=== PATIENT | female | born 1945 | race Caucasian/White ===

== ENCOUNTER 2016-10-26 12:03 | Emergency (ER) | payer OTHER ==
[~2016-10-26] VITALS: Ht 162.6 cm; Wt 91.5 kg
[~2016-10-26 12:03] MED LIST: ZOLOFT
[2016-10-26 12:46] VITALS: Ht 162.6 cm; Wt 91.5 kg
[2016-10-26] MEDS ORDERED: KETOROLAC 30 MG INJ IM STA (15:47)
[2016-10-26] MEDS ORDERED: NAPR-260 PO (15:56)
[2016-10-26] MEDS ORDERED: ACET500C5 PO (15:56)
[2016-10-26 16:04] VITALS: BP 106/79; PULSE 78; RESP 18; TEMP 98.7
--- NOTE | 2016-10-26 16:04 | ERD ---
ER Documentation Chief Complaint Date/Time DATE: 10/26/16 TIME: 15:59 Chief Complaint GENERALIZED BODY PAIN,SEVERE ON THE KNEES HPI This is a 71-year-old female who presents to the emergency department today complaining of multiple areas of pain. Patient states he has pain in her upper shoulders and neck, low back and bilateral knees. States that she has had this pain for 4 years. States that she also takes medication for her thyroid as well as depression medications. States that she did get some blood work done 6 weeks ago from her primary care doctor but did not follow-up because when she called the told her that there was "nothing wrong". Denies any fevers or chills. Denies any trauma or fall. Denies any loss of bowel or bladder control. States she has not taken any medication for the pain. ROS All systems reviewed and are negative except as per history of present illness. Medications Home Meds Active Scripts Acetaminophen* (Tylophen*) 500 Mg Capsule, 1 CAP PO Q6H Y for PAIN AND OR ELEVATED TEMP, #30 CAP Prov:HAO NGUYEN PA-C 10/26/16 Naproxen* (Naprosyn*) 500 Mg Tablet, 500 MG PO BID Y for PAIN AND/OR INFLAMMATION, #30 TAB Prov:HAO NGUYEN PA-C 10/26/16 Reported Medications [Zoloft] No Conflict Check 09/15/10 Allergies Allergies: Coded Allergies: No Known Drug Allergies (Verified Allergy, Mild, 10/07/14) PMhx/Soc History of Surgery: No Anesthesia Reaction: No Hx Neurological Disorder: No Hx Respiratory Disorders: No Hx Cardiac Disorders: No Hx Psychiatric Problems: Yes (ZOLOFT) Hx Miscellaneous Medical Probl: No Hx Alcohol Use: No Hx Substance Use: No Hx Tobacco Use: Yes Smoking Status: Never smoker Physical Exam Vitals Vital Signs Date Time Temp Pulse Resp B/P Pulse Ox O2 Delivery O2 Flow Rate FiO2 10/26/16 12:46 98.4 82 18 118/84 98 Physical Exam Const: No acute distress Head: Atraumatic Eyes: Normal Conjunctiva ENT: Normal External Ears, Nose and Mouth. Neck: Full range of motion..~ No meningismus. No midline tenderness Resp: Clear to auscultation bilaterally Cardio: Regular rate and rhythm, no murmurs kin: No petechiae or rashes Back: No midline or flank tenderness. Bilateral paraspinal tenderness. MSK: Bilateral knees with no obvious deformity. No effusion. No ecchymosis. Full active range of motion. No erythema or warmth. Pulses 2+. Distal neurovascular intact Neur: Awake and alert Psych: Normal Mood and Affect Results 24 hrs Current Medications Medications (Trade) Dose Ordered Sig/Manuel Route PRN Reason Start Time Stop Time Status Last Admin Dose Admin Ketorolac Tromethamine (Toradol) 30 mg ONCE STAT IM 10/26/16 15:47 10/26/16 15:49 DC 10/26/16 15:52 Procedures/MDM This 71-year-old female who presents to the emergency department today complaining of multiple areas of pain that is been ongoing for the past 4 years. Patient denies any trauma and she has no loss of bowel or bladder control and I do not feel that she requires further evaluation or workup at this time. Patient did indicate that she did have blood work completed 6 months ago. I have explained to the patient that she does need to follow-up in regards to that blood work. Patient was also stating that she has used Fosamax in the past and that was helpful for her. I explained to the patient that this is not something that I was comfortable sending her home with at this time as she did need to be evaluated for osteoporosis or osteopenia and that she should follow-up with her primary care doctor about this. Patient is afebrile and otherwise well-appearing. Low suspicion for acute fracture, dislocation, cauda equina or abscess. Low suspicion for meningitis. Low suspicion for septic joint or gout. Patient was able to ambulate. She was given a Toradol injection. She did not take any medication at home for pain and therefore did give her a prescription for Naprosyn and Tylenol. 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 Patient should follow up with their PCP in the next 1-2 days. They may return to the emergency department sooner for any persistent or worsening of symptoms. Patient understood and agreed with the plan. Departure Diagnosis: Primary Impression: Pain Condition: Fair Patient Instructions: Reducing Knee Pain and Swelling, Back Pain (Acute Or Chronic) Referrals: your PCP Dr. Lopez [facility] Hours: Tue-Tue 9:00 AM - 5:00 PM Additional Instructions: Call your primary care doctor TOMORROW for an appointment during the next 1-2 days.See the doctor sooner or return here if your condition worsens before your appointment time. Take Naprosyn or Tylenol or Motrin if you have pain Follow-up with your primary care doctor for further evaluation HAO NGUYEN PA-C Oct 26, 2016 16:04
== END 2016-10-26 16:06 | disposition home or self-care (01) ==
LOC: FTE 12:03
DX: M25.561 Pain in right knee (principal); M25.562 Pain in left knee; M25.519 Pain in unspecified shoulder; M54.2 Cervicalgia; M54.5 Low back pain; Z87.891 Personal history of nicotine dependence
CPT/HCPCS: 96372; 99284; J1885

== ENCOUNTER 2017-04-30 13:16 | Emergency (ER) | payer OTHER ==
[~2017-04-30] VITALS: Ht 160 cm; Wt 75.0 kg
[~2017-04-30 13:16] MED LIST changes: +ACET500C5 PO; +NAPR-260 PO
[2017-04-30 13:37] VITALS: Ht 160 cm; Wt 75.0 kg
--- NOTE | 2017-04-30 15:59 | RADRPT ---
PROCEDURE: XR Chest. CLINICAL INDICATION: Cough for 2 months. TECHNIQUE: Single frontal view. COMPARISON: None. FINDINGS: The lungs are clear. The heart is mildly enlarged. There is calcification in the aorta consistent with atherosclerosis. There is no pleural effusion. There is no pneumothorax. IMPRESSION: 1. Mild cardiomegaly. 2. Atherosclerosis. 3. Otherwise normal chest x-ray. RPTAT: QQ .Pro Davis MD, MD Date Time Electronically viewed and signed by .Pro Davis MD, on 04/30/2017 15:59 .R/
[2017-04-30] MEDS ORDERED: BENZ200C43 PO (16:08)
[2017-04-30 16:14] VITALS: BP 164/77; PULSE 91; RESP 16; TEMP 98.1
--- NOTE | 2017-04-30 16:35 | ERD ---
ER Documentation Chief Complaint Chief Complaint pt bib self with c/o cough for a month, no fever at triage. HPI This patient is a 72-year-old female presenting to the emergency department with complaints of cough intermittently for the past 2 months. Symptoms are worsening. Cough was initially dry then became productive. Associated symptoms include fevers and sneezing. She denies chest pain, shortness of breath, or other symptoms currently. ROS All systems reviewed and are negative except as per history of present illness. Medications Home Meds Active Scripts Benzonatate* (Benzonatate*) 200 Mg Capsule, 200 MG PO TID Y for COUGH, #20 CAP Prov:ART ANDERS PA-C 04/30/17 Acetaminophen* (Tylophen*) 500 Mg Capsule, 1 CAP PO Q6H Y for PAIN AND OR ELEVATED TEMP, #30 CAP Prov:HAO NGUYEN PA-C 10/26/16 Naproxen* (Naprosyn*) 500 Mg Tablet, 500 MG PO BID Y for PAIN AND/OR INFLAMMATION, #30 TAB Prov:HAO NGUYEN PA-C 10/26/16 Reported Medications [Zoloft] No Conflict Check 09/15/10 Allergies Allergies: Coded Allergies: No Known Drug Allergies (Verified Allergy, Mild, 10/07/14) PMhx/Soc History of Surgery: No Anesthesia Reaction: No Hx Neurological Disorder: No Hx Respiratory Disorders: No Hx Cardiac Disorders: No Hx Psychiatric Problems: Yes (ZOLOFT) Hx Miscellaneous Medical Probl: No Hx Alcohol Use: No Hx Substance Use: No Hx Tobacco Use: Yes Smoking Status: Current every day smoker Physical Exam Vitals Vital Signs Date Time Temp Pulse Resp B/P Pulse Ox O2 Delivery O2 Flow Rate FiO2 04/30/17 16:14 98.1 91 16 164/77 96 Room Air 04/30/17 13:37 98.1 86 16 169/71 96 Physical Exam Const: Nontoxic, well-appearing female in no acute distress. Head: Atraumatic Eyes: Normal Conjunctiva ENT: Normal External Ears, Nose and Mouth. Neck: Full range of motion..~ No meningismus. Resp: Clear to auscultation bilaterally Cardio: Regular rate and rhythm, no murmurs Skin: No petechiae or rashes Ext: No cyanosis, or edema Neur: Awake and alert Psych: Normal Mood and Affect Procedures/MDM 72-year-old female presenting to the emergency department with complaints of cough. Physical examination is unremarkable. Chest x-ray was not concerning for pneumonia. Low suspicion for life-threatening illness including but not limited to aortic dissection, pneumothorax, pulmonary embolism, pneumonia, sepsis, and others. Patient is stable for outpatient management with a prescription for benzonatate. She is to follow-up with her primary care physician within 1-2 days. She is advised to return immediately for any new or worsening symptoms. PROCEDURE: XR Chest. CLINICAL INDICATION: Cough for 2 months. TECHNIQUE: Single frontal view. COMPARISON: None. FINDINGS: The lungs are clear. The heart is mildly enlarged. There is calcification in the aorta consistent with atherosclerosis. There is no pleural effusion. There is no pneumothorax. IMPRESSION: 1. Mild cardiomegaly. 2. Atherosclerosis. 3. Otherwise normal chest x-ray. RPTAT: QQ .Pro Davis MD, MD Date Time Electronically viewed and signed by .Pro Davis MD, on 04/30/2017 15:59 Departure Diagnosis: Primary Impression: Cough Condition: Fair Patient Instructions: Cough, Chronic, Uncertain Cause, (Adult) [facility]errals: [facility] Usted se davila hecho un examen mdico de control que le indica que no est en corona condicin que requiera tratamiento urgente en el Departamento de Emergencia. Un estudio ms profundo y el tratamiento de burgess condicin pueden esperar sin ningn riesgo hasta que usted sea atendida/o en el consultorio de burgess mdico o corona cl dominguez. Es responsabilidad suya arreglar corona emily para el seguimiento del abhijeet. MANEJO DE CONDICIONES NO URGENTES EN EL FUTURO 1) Si usted tiene un mdico de atencin primaria: Usted debera llamar a burgess mdico de atencin primaria antes de venir al departamento de emergencia. Despus de las horas de consultorio, burgess doctor o burgess asociado/a est disponible por telfono. El mdico o enfermero de iveth en el servicio telefnico puede asesorarle por nivia medio para atender el problema, o abhijeet contrario se puede programar corona emily. 2) Si usted no tiene un mdico de atencin primaria: Llame al mdico o clnica de referencia que aparece abajo merritt las horas de consultorio para hacer corona emily para que le vean. CLINICAS: [facility] [phone] [facility] [phone] [facility] [phone] [place] [phone] [place] [phone] [facility] [phone] Additional Instructions: No mas mejor en 2-3 dickson, regresar. Mas peor en 24 horas, regresear rapidamente. Ir a doctor primario en 1-2 dickson. Usar instrucciones cuando lashanda medicamento. ART ANDERS PA-C Apr 30, 2017 16:35
== END 2017-04-30 16:15 | disposition home or self-care (01) ==
LOC: FTE 13:16
DX: R05 Cough (principal); F17.210 Nicotine dependence, cigarettes, uncomplicated
CPT/HCPCS: 71010

== ENCOUNTER 2017-09-11 18:18 | Emergency (ER) | END 2017-09-11 21:08 | disposition home or self-care (01) ==

== ENCOUNTER 2018-05-05 15:16 | Emergency (ER) | END 2018-05-05 17:00 | disposition home or self-care (01) ==

== ENCOUNTER 2018-09-03 14:18 | Emergency (ER) | payer OTHER ==
[~2018-09-03] VITALS: Ht 162.6 cm; Wt 90.5 kg
[~2018-09-03 14:18] MED LIST changes: +BACL10TA PO; +BENZ200C68 PO; +HC30CR25 TOP; +LORA-441 PO; -NAPR-260 PO; +NAPR-985 PO; +PRED20TA PO
[2018-09-03 14:21] VITALS: Ht 162.6 cm; Wt 90.5 kg
[2018-09-03] MEDS ORDERED: HYDROmorphONE 1 MG/ML SYG IV STA (14:57)
[2018-09-03] MEDS ORDERED: ONDANSETRON 4 MG INJ IV STA (14:57)
--- NOTE | 2018-09-03 15:11 | ERD ---
ER Documentation Chief Complaint Chief Complaint abd pain x 2 weeks lowe back pain x 1 month bilat leg numbnessx 1 week HPI This is a 73-year-old female who is here for left-sided sciatica since she had a fall 3 weeks ago. She has occasional low back pain but complains of radicular pain down the left leg has to use a cane. She says she has pain in her left buttocks that radiates down the back of the left leg. She is also complaining of 2 days of right lower quadrant pain that is off and on no fever no nausea vomiting diarrhea no chest pain or shortness of breath. No dysuria or hematuria ROS All systems reviewed and are negative except as per history of present illness. Medications Home Meds Reported Medications Ergocalciferol (Vitamin D2) (VITAMIN D2) 2,000 Unit Tablet, 2000 UNIT PO DAILY, TAB 09/03/18 Sertraline Hcl* (Zoloft*) 25 Mg Tablet, 25 MG PO DAILY, #30 TAB 09/03/18 Discontinued Reported Medications [Zoloft] No Conflict Check 09/15/10 Discontinued Scripts Prednisone* (Prednisone*) 20 Mg Tab, 40 MG PO DAILY for 5 Days, TAB Prov:RISSA RAMOS PA-C 05/05/18 Hydrocortisone* Topical (Hydrocortisone* Topical) 2.5%-28.3 Gm Cream..g., 1 APPLIC TOP BID, #1 TUB Prov:RISSA RAMOS PA-C 05/05/18 Naproxen* (Naprosyn*) 500 Mg Tablet, 500 MG PO BID PRN for PAIN AND/OR INFLAMMATION for 5 Days, #10 TAB Prov:NITA MILLER MD 09/11/17 Baclofen* (Baclofen*) 10 Mg Tablet, 10 MG PO TID PRN for MUSCLE SPASMS for 7 Days, #20 TAB Prov:NITA MILLER MD 09/11/17 Lorazepam* (Ativan*) 0.5 Mg Tablet, 0.5 MG PO Q8H PRN for ANXIETY, #20 TAB Prov:NTIA MILLER MD 09/11/17 Benzonatate* (Benzonatate*) 200 Mg Capsule, 200 MG PO TID PRN for COUGH, #20 CAP Prov:ART ANDERS PA-C 04/30/17 Acetaminophen* (Tylophen*) 500 Mg Capsule, 1 CAP PO Q6H PRN for PAIN AND OR ELEVATED TEMP, #30 CAP Prov:HAO NGUYEN PA-C 10/26/16 Naproxen* (Naprosyn*) 500 Mg Tablet, 500 MG PO BID PRN for PAIN AND/OR INFLAMMATION, #30 TAB Prov:PATRICKHAO Douglas PA-C 10/26/16 Allergies Allergies: Coded Allergies: No Known Drug Allergies (Verified Allergy, Mild, 10/07/14) PMhx/Soc History of Surgery: No Anesthesia Reaction: No Hx Neurological Disorder: No Hx Respiratory Disorders: No Hx Cardiac Disorders: No Hx Psychiatric Problems: Yes (depression) Hx Miscellaneous Medical Probl: No Hx Alcohol Use: No Hx Substance Use: No Hx Tobacco Use: Yes Smoking Status: Light tobacco smoker FmHx Family History: No coronary disease Physical Exam Vitals Vital Signs Date Temp Pulse Resp B/P (MAP) Pulse Ox O2 O2 Flow FiO2 Time Delivery Rate 09/03/18 60 18 140/86 98 Nasal 2.0 17:00 (104) Cannula 09/03/18 60 16 146/75 97 Nasal 2.0 15:47 (98) Cannula 09/03/18 98.7 87 18 151/75 96 14:21 (100) Physical Exam Const: Well-developed, well-nourished Head: Atraumatic, normocephalic Eyes: Normal Conjunctiva, PERRLA, EOMI, normal sclera, no nystagmus ENT: Normal External Ears, Nose and Mouth, moist mucus membranes. Neck: Full range of motion. No meningismus, no lymphadenopathy. Resp: Clear to auscultation bilaterally, no wheezing, rhonchi, rales Cardio: Regular rate and rhythm, no murmurs, S1 S2 present Abd: Soft, mild right lower quadrant tenderness to palpation non distended. Normal bowel sounds, no guarding or rebound, no pulsitile abdominal masses or bruits Skin: No petechiae or rashes, no ecchymosis , no maculopapular rash Back: No midline or flank tenderness, left buttocks is tender to palpation Ext: No cyanosis, or edema, FROM x 4, normal inspection, neurov ascularly intact x 4 Neur: Awake and alert, STR 5/5 x 4, sensation intact x 4, no focal findings, cerebellum intact Psych: Normal Mood and Affect Result Diagram: 09/03/18 1506 09/03/18 1506 Results 24 hrs Laboratory Tests Test 09/03/18 15:06 White Blood Count 11.1 10^3/ul Red Blood Count 4.30 10^6/ul Hemoglobin 11.8 g/dl Hematocrit 36.9 % Mean Corpuscular Volume 85.8 fl Mean Corpuscular Hemoglobin 27.4 pg Mean Corpuscular Hemoglobin Concent 32.0 g/dl Red Cell Distribution Width 14.1 % Platelet Count 232 10^3/UL Mean Platelet Volume 10.9 fl Immature Granulocytes % 0.500 % Neutrophils % 71.6 % Lymphocytes % 18.8 % Monocytes % 8.1 % Eosinophils % 0.5 % Basophils % 0.5 % Nucleated Red Blood Cells % 0.0 /100WBC Immature Granulocytes # 0.050 10^3/ul Neutrophils # 7.9 10^3/ul Lymphocytes # 2.1 10^3/ul Monocytes # 0.9 10^3/ul Eosinophils # 0.1 10^3/ul Basophils # 0.1 10^3/ul Nucleated Red Blood Cells # 0.0 10^3/ul Sodium Level 139 mmol/L Potassium Level 3.4 mmol/L Chloride Level 103 mmol/L Carbon Dioxide Level 30 mmol/L Anion Gap 6 Blood Urea Nitrogen 18 mg/dl Creatinine 0.69 mg/dl Est Glomerular Filtrat Rate mL/min mL/min Glucose Level 107 mg/dl Calcium Level 9.0 mg/dl Total Bilirubin 0.4 mg/dl Direct Bilirubin 0.00 mg/dl Indirect Bilirubin 0.4 mg/dl Aspartate Amino Transf (AST/SGOT) 42 IU/L Alanine Aminotransferase (ALT/SGPT) 24 IU/L Alkaline Phosphatase 83 IU/L Total Protein 7.3 g/dl Albumin 3.8 g/dl Globulin 3.50 g/dl Albumin/Globulin Ratio 1.08 Current Medications Medications Dose Sig/Manuel Start Time Status Last (Trade) Ordered Route PRN Stop Time Admin Dose Reason Admin 1 mg ONCE STAT 09/03/18 DC 09/03/18 Hydromorphone IV 14:57 15:23 HCl 09/03/18 14:58 (Dilaudid) Ondansetron 4 mg ONCE STAT 09/03/18 DC 09/03/18 HCl (Zofran IV 14:57 15:23 Inj) 09/03/18 14:58 Sodium 100 ml @ ud STK-MED 09/03/18 DC Chloride ONCE .ROUTE 16:29 09/03/18 16:30 Iohexol 150 ml STK-MED 09/03/18 DC (Omnipaque ONCE .ROUTE 16:29 300mg/ ml) 09/03/18 16:30 Procedures/MDM PROCEDURE: CT abdomen and pelvis with contrast. CLINICAL INDICATION: Abdominal Pain TECHNIQUE: CT scan of the abdomen and pelvis without contrast was performed and is reconstructed at 2.5 mm contiguous axial intervals from the dome of the diaphragm to the inferior pubic rami.. The patient was scanned without intravenous contrast. Sagittal and coronal reformatted images were obtained from the axial source images. The calculated radiation dose measures 1287 mGy centimeters. The CTDI measures 22 mGy. Individualized dose optimization technique was used for the performance of this exam. This included 1. Automated exposure control. 2. Adjustment of the mA and / or kV according to the patient's size. 3. Use of iterative reconstructed technique. COMPARISON: None. FINDINGS: The lung bases are clear of any infiltrate or nodule. No effusion is seen. The liver is of normal size and contour with no solid mass or ductal dilatation. There is fatty infiltration of the liver. There is a 3 mm cyst at the diaphragmatic aspect of the left lobe of the liver. No gallstones are visualized. No splenic, adrenal or pancreatic abnormalities present. Kidneys are of normal size and contour. No hydronephrosis, calculus or masses seen. Ureters are of normal course and caliber with no stone. No bladder mass or stone is present. Atrophic postmenopausal uterus is normal. There is no aneurysm. No adenopathy is present. No bowel mass or obstruction is present. The appendix is normal. There are a few scattered colonic diverticula. No phlegmon, ascites or pneumoperitoneum is visualized. Noted is a paraumbilical hernia containing fat. Multilevel degenerative disc disease is seen in the thoracic and lumbar spine. IMPRESSION: No evidence of urolithiasis, obstructive uropathy, diverticulitis or appendicitis. Diverticulosis. Fatty liver. Tiny hepatic cyst. Paraumbilical hernia containing fat. .Allen Krishna MD, MD Date Time Electronically viewed and signed by .Allen Krishna MD, on 09/03/2018 16:55 .A/ CC: JEN SOLOMON DO [phone] Patient has no evidence of appendicitis diverticulitis or other intra-abdominal pathology. She does have left-sided sciatica will provide her with some pain control and muscle relaxers and steroids and follow-up with orthopedics for physical therapy etc. as an outpatient. Patient feels much better at this time, and vital signs are normal, symptoms have improved. I did give strict instructions to return to the ED if symptoms continue or worsen, patient will otherwise follow-up with primary care physician. Patient understood instructions and agreed to plan. Disclaimer: Inadvertent spelling and grammatical errors are likely due to EHR/dictation software use and do not reflect on the overall quality of patient care. Also, please note that the electronic time recorded on this note does not necessarily reflect the actual time of the patient encounter. Departure Diagnosis: Primary Impression: Abdominal pain Abdominal location: right lower quadrant Qualified Codes: R10.31 - Right lower quadrant pain Additional Impression: Left sided sciatica Condition: Stable JEN SOLOMON DO Sep 03, 2018 15:11
[2018-09-03] MEDS ORDERED: SERT25TA PO (15:58)
[2018-09-03] MEDS ORDERED: ERGO2000 PO (16:04)
[2018-09-03] MEDS ORDERED: IOHEXOL 300MG/ML 150 ML BTL ONE (16:29)
[2018-09-03] MEDS ORDERED: SOD CHLORIDE 0.9% 100 ML ONE (16:29)
[2018-09-03] MEDS ORDERED: METH500T PO (18:02)
[2018-09-03] MEDS ORDERED: HYDR-3980 PO (18:02)
[2018-09-03] MEDS ORDERED: IBUP-1542 PO (18:02)
[2018-09-03 18:30] VITALS: BP 142/82; PULSE 62; RESP 18
== END 2018-09-03 18:37 | disposition home or self-care (01) ==
LOC: E/R 14:18
DX: R10.31 Right lower quadrant pain (principal); F17.210 Nicotine dependence, cigarettes, uncomplicated; M54.42 Lumbago with sciatica, left side
CPT/HCPCS: 36415; 74177; 80053; 85025; 96374; 96375; 99285; J1170; J2405; Q9967

== ENCOUNTER 2019-03-28 15:34 | Emergency (ER) | payer OTHER ==
[~2019-03-28] VITALS: Wt 90.0 kg
[~2019-03-28 15:34] MED LIST changes: -ACET500C5 PO; +ALBU8.5H8 INH; +AZIT500T3 PO; -BACL10TA PO; +BENZ-6 PO; -BENZ200C68 PO; +CIPR750T3 PO; +ERGO2000 PO; -HC30CR25 TOP; +HYDR-3980 PO; +IBUP-1542 PO; -LORA-441 PO; +METH500T PO; -NAPR-985 PO; -PRED20TA PO; +SERT25TA PO; -ZOLOFT
[2019-03-28 15:37] VITALS: BP 155/86; PULSE 94; RESP 18
[2019-03-28] MEDS ORDERED: CEFTRIAXONE 1 GM INJ IM ONE (17:30)
[2019-03-28] MEDS ORDERED: LIDOCAINE 1% (MPF) 5 ML VIAL INFIL ONE (17:30)
[2019-03-28] MEDS ORDERED: AZITHROMYCIN 500 MG TAB PO ONE (17:30)
== END 2019-03-28 17:29 | disposition home or self-care (01) ==
LOC: FTE 15:34
DX: J18.1 Lobar pneumonia, unspecified organism (principal); F17.210 Nicotine dependence, cigarettes, uncomplicated
CPT/HCPCS: 71046; 93005; 96372; 99284; J0696

== ENCOUNTER 2019-05-09 09:20 | Emergency (ER) | payer OTHER ==
[~2019-05-09] VITALS: Ht 160 cm; Wt 91.2 kg
[2019-05-09 09:27] VITALS: Ht 160 cm; Wt 91.2 kg
[2019-05-09 11:28] VITALS: BP 141/74; PULSE 80; RESP 20
[2019-05-09] MEDS ORDERED: CEFTRIAXONE 1 GM INJ IM ONE (11:30)
[2019-05-09] MEDS ORDERED: LIDOCAINE 1% (MPF) 5 ML VIAL INFIL ONE (11:30)
== END 2019-05-09 11:29 | disposition home or self-care (01) ==
LOC: FTE 09:20
DX: J18.9 Pneumonia, unspecified organism (principal); F17.210 Nicotine dependence, cigarettes, uncomplicated
CPT/HCPCS: 71046; 96372; 99284; J0696